=== PATIENT | female | born 1985 | race African-American/Black ===

== ENCOUNTER 2017-04-26 11:26 | Emergency (ER) | payer MEDICAID ==
[~2017-04-26] VITALS: Ht 165.1 cm; Wt 92.8 kg
[2017-04-26] MEDS ORDERED: ALBU6.7H INH (15:24)
[2017-04-26] MEDS ORDERED: AZIT250T PO (15:24)
[2017-04-26] MEDS ORDERED: CODE118S4 PO (15:24)
[2017-04-26 15:33] VITALS: BP 111/71
== END 2017-04-26 15:34 | disposition home or self-care (01) ==
LOC: ER 11:28
DX: J18.9 Pneumonia, unspecified organism (principal); J02.9 Acute pharyngitis, unspecified; Z88.0 Allergy status to penicillin; Z88.1 Allergy status to other antibiotic agents
CPT/HCPCS: 71020; 87502; 87503; 99285